=== PATIENT | female | born 1965 | race Caucasian/White ===

== ENCOUNTER → 2019-11-28 | Outpatient (CLI) | payer OTHER, MEDICAID ==
[~2019-11-28] MED LIST: ATEN-42 PO; GEMF600T5 PO; LORA10TA7 PO
== END | disposition home or self-care (01) ==
LOC: LAB 09:22
PROVIDERS: ATTEND Orthopaedic Surgery
DX: Z01.818 Encounter for other preprocedural examination (principal); Z11.59 Encounter for screening for other viral diseases
CPT/HCPCS: C9803; U0003

== ENCOUNTER 2019-12-02 05:39 | Day surgery (SDC) | payer OTHER, MEDICAID ==
[~2019-12-02] VITALS: Ht 149.9 cm; Wt 69.4 kg
[~2019-12-02 05:39] MED LIST changes: +LACTATED RINGERS 1,000 ML IV SCH
[2019-12-02] MEDS ORDERED: GENTAMICIN SULF 40MG/ML 2ML VIAL ONE (07:04)
[2019-12-02] MEDS ORDERED: VANCOMYCIN HCL 1 GM/VIAL ONE (07:05)
[2019-12-02] MEDS ORDERED: BACITRACIN 50,000 UNITS/VIAL ONE (07:05)
[2019-12-02] MEDS ORDERED: SKIN ADHESIVE 0.7 GM EA TOP ONE (07:05)
[2019-12-02] MEDS ORDERED: NORMAL SALINE 0.9% 10 ML SYR ONE (07:05)
[2019-12-02] MEDS ORDERED: BUPIVACAINE HCL/PF 0.25% (2.5MG/ML) 10ML ONE (07:05)
[2019-12-02] MEDS ORDERED: BACITRACIN 15GM TUBE TOP ONE (07:05)
[2019-12-02] MEDS ORDERED: MIDAZOLAM HCL 2 MG/2 ML VIAL ONE (07:33)
[2019-12-02] MEDS ORDERED: FENTANYL CITRATE/PF 50MCG/ML 2ML VIAL ONE (07:33)
[2019-12-02] MEDS ORDERED: PROPOFOL 200MG/20ML VIAL IV ONE (07:34)
[2019-12-02] MEDS ORDERED: LIDOCAINE HCL/PF 1% 10 MG/ML 5ML VIAL ONE (07:34)
[2019-12-02] MEDS ORDERED: CEFAZOLIN SODIUM 1000MG/VIAL ONE (07:37)
[2019-12-02] MEDS ORDERED: HYDROCODONE/ACETAMINOPHEN 5/325MG TABLET PO PRN (07:45)
[2019-12-02] MEDS ORDERED: ONDANSETRON HCL 4MG/2ML INJ ONE (08:20)
[2019-12-02] MEDS ORDERED: KETOROLAC 30MG/ML VIAL ONE (08:21)
== END 2019-12-02 10:50 | disposition home or self-care (01) ==
LOC: OR 05:39
PROVIDERS: ATTEND Orthopaedic Surgery
DX: M65.322 Trigger finger, left index finger (principal); E78.00 Pure hypercholesterolemia, unspecified; I10 Essential (primary) hypertension; F41.9 Anxiety disorder, unspecified; M19.90 Unspecified osteoarthritis, unspecified site; Z79.899 Other long term (current) drug therapy; Z98.890 Other specified postprocedural states
CPT/HCPCS: 26055; J0690; J1885; J2250; J2405; J2704; J3010; J3490; J1580; J3370